=== PATIENT | male | born 1940 | race Two or more races ===

== ENCOUNTER 2018-05-07 12:20 | Inpatient (IN) | payer MEDICARE, MEDICAID ==
[~2018-05-07] VITALS: Ht 165.1 cm; Wt 72.1 kg
--- NOTE | 2018-05-07 12:27 | NUR ---
RUBI [employer] professional [facility] FROM [facility] FOR GT REPLACEMENT, "BALLOON DEFLATED AROUND 9AM" TO ER BED 7, HOOKED TO MONITOR, AWAITING MD ROMERO
--- NOTE | 2018-05-07 12:40 | NUR ---
DR GARZA AT BEDSIDE
--- NOTE | 2018-05-07 12:43 | NUR ---
DR GARZA AT BEDSIDE, ATTEMPTED TO REINSERT G-TUBE FR16, UNSUCCESSFUL DUE TO CLOSURE OF STOMA
--- NOTE | 2018-05-07 12:45 | NUR ---
CALLED DR. VALLEJO [phone] TO CALL BACK.
--- NOTE | 2018-05-07 12:56 | NUR ---
CALLED HOUSE SUP FOR MS BED
--- NOTE | 2018-05-07 12:57 | NUR ---
XRAY AT BS
[2018-05-07] MEDS ORDERED: ISOS30TA9 GT (13:08)
[2018-05-07] MEDS ORDERED: NITR0.4T48 SL (13:08)
[2018-05-07] MEDS ORDERED: DICL100G16 TP (13:08)
[2018-05-07] MEDS ORDERED: NUT.237L67 GT (13:08)
[2018-05-07] MEDS ORDERED: IPRA3AMP23 IH (13:08)
[2018-05-07] MEDS ORDERED: ACID1TAB12 GT (13:08)
[2018-05-07] MEDS ORDERED: FOLI1TAB16 GT (13:08)
[2018-05-07] MEDS ORDERED: LEVO125T8 GT (13:08)
[2018-05-07] MEDS ORDERED: ASPI-1169 GT (13:08)
[2018-05-07] MEDS ORDERED: NA P133E RC (13:08)
[2018-05-07] MEDS ORDERED: THIA100T74 GT (13:08)
[2018-05-07] MEDS ORDERED: ACET-868 GT (13:08)
[2018-05-07] MEDS ORDERED: FAMO20TA8 GT (13:08)
[2018-05-07] MEDS ORDERED: FURO-144 GT (13:08)
[2018-05-07] MEDS ORDERED: FERR300L GT (13:08)
[2018-05-07] MEDS ORDERED: DOCU50LI GT (13:08)
[2018-05-07] MEDS ORDERED: INSU100V3 SQ (13:08)
[2018-05-07] MEDS ORDERED: BLOO-668 IN (13:08)
[2018-05-07] MEDS ORDERED: VIT500LI GT (13:08)
[2018-05-07] MEDS ORDERED: MULT-447 GT (13:08)
[2018-05-07] MEDS ORDERED: BISA10SU11 RC (13:08)
[2018-05-07] MEDS ORDERED: MAGN400O6 GT (13:08)
[2018-05-07] MEDS ORDERED: AMLO5TAB9 GT (13:08)
[2018-05-07] MEDS ORDERED: INSU100V7 SQ (13:08)
[2018-05-07 13:14] LABS: CALCIUM, SERUM 8.8 mg/dL (8.5-10.1); CARBON DIOXIDE 24 mmol/L (21-32); CHLORIDE 99 mmol/L (98-107); CREATININE 3.4 mg/dL (0.6-1.3); GLUCOSE 118 mg/dL (74-106); POTASSIUM 4.2 mmol/L (3.5-5.1); SODIUM SERUM 136 mmol/L (136-145); UREA NITROGEN, BLOOD 66 mg/dL (7-18)
--- NOTE | 2018-05-07 13:15 | NUR ---
CALLED DR. VALLEJO [phone] TO CALL MD BACK SECOND TIME
[2018-05-07 13:32] LABS: BASOPHILS % (AUTO) 0.5 % (0.0-2.0); EOSINOPHILS % (AUTO) 5.9 % (0.0-6.0); HEMATOCRIT 23 % (39-51); HEMOGLOBIN 8.4 g/dL (13.5-17.5); LYMPHOCYTES # (AUTO) 1.8 /CMM (0.8-4.8); LYMPHOCYTES % (AUTO) 23.1 % (20.0-44.0); MEAN CORPUSCULAR VOLUME 108 fL (80-96); MONOCYTES # (AUTO) 0.7 /CMM (0.1-1.30); MONOCYTES % (AUTO) 9.2 % (2.0-12.0); NEUTROPHILS # (AUTO) 4.9 /CMM (1.8-8.9); NEUTROPHILS % (AUTO) 61.3 % (43.0-81.0); PLATELET COUNT (AUTO) 268 /CMM (150-450); RED BLOOD CELL COUNT(AUTO) 2.12 MIL/uL (4.5-6.0)
[2018-05-07 13:34] LABS: MEAN CORPUSCULAR HGB CONC 37 g/dl (31.0-36.0)
[2018-05-07 13:54] LABS: EOSINOPHILS % (MANUAL) 5 % (0-4); LYMPHOCYTES % (MANUAL) 16 % (16-48); MONOCYTES % (MANUAL) 7 % (0-11.0); NEUTROPHILS % (MANUAL) 72 (42-76)
--- NOTE | 2018-05-07 14:40 | NUR ---
GOT MS BED 311-2
--- NOTE | 2018-05-07 15:29 | NUR ---
REPORT GIVEN TO DAVIDE MENON FOR MICHELLE
--- NOTE | 2018-05-07 15:55 | NUR ---
MS EXERCISE TEACHER NOTE RECEIVED PT FROM ER VIA WHEELCHAIR WITH DX OF G-TUBE REPLACEMENT. PT IS NON-VERBAL WITH TRACH, RESPONDS TO YES AND NO QUESTIONS. PT DENIES PAIN AT THIS TIME. BREATHING IS EVEN AND UNLABORED ON ROOM AIR. NO ACUTE DISTRESS NOTED AT THIS TIME. LEFT AC #20G IV IS PATENT, CLEAN, DRY AND INTACT. VS OBTAINED. WOUND DOCUMENTATION COMPLETED PER PROTOCOL. ALL BELONGINGS ACCOUNTED FOR AND SIGNED, PLACED IN CHART. UNIT ORIENTATION PROVIDED, PT EDUCATED ON USE OF CALL SYSTEM WELL TO ONLY GET OUT OF BED WITH STAFF ASSISTANCE. PT NODDED HEAD UP AND DOWN. BED IS LOCKED AND IN LOWEST POSITION, SIDE RAILS UP X2, BED ALARM ON, CALL LIGHT AND POSSESSIONS WITHIN REACH. AWAITING ADMISSION ORDERS FROM DR. VALLEJO.
--- NOTE | 2018-05-07 16:14 | NUR ---
MS RN NOTE PAGED RIGHT OF WAY CLEARER NUMBER [phone] VALLEJO REGARDING ADMISSION ORDERS. AWAITING RESPONSE.
[2018-05-07] MEDS ORDERED: Z GUARD REMEDY 2 OZ OINT TP PRN (17:30)
[2018-05-07] MEDS ORDERED: ONDANSETRON HCL/PF 4 MG/2 ML VIAL IVP PRN (17:30)
[2018-05-07] MEDS ORDERED: HYDROCODONE/APAP 5/325MG 1 EACH TABLET PO PRN (17:30)
[2018-05-07] MEDS ORDERED: ZOLPIDEM TARTRATE 5 MG TABLET PO PRN (17:30)
[2018-05-07] MEDS: IV NS 0.9% 1,000 ML IV PRN (18:06)
--- NOTE | 2018-05-07 18:30 | NUR ---
MS RN CLOSING NOTE PT IN BED, RESTING WITH EYES CLOSED. EYES OPEN SPONTANEOUSLY TO VERBAL AND TACTILE STIMULI, PT IS NON-VERBAL W/ TRACH. PT ABLE TO ANSWER BASIC QUESTIONS AND ALSO PROVIDED WITH PEN AND PAPER ON CLIPBOARD AT THE BEDSIDE. PT DENIES PAIN AT THIS TIME. NO ACUTE DISTRESS NOTED. LEFT AC #22G INFUSING NS @ 50ML/HR WITHOUT REDNESS OR SWELLING. ALL NEEDS ATTENDED TO. ASPIRATION PRECAUTIONS AND NPO STATUS MAINTAINED. BED IS LOCKED AND IN LOWEST POSITION, SIDE RAILS UP X2, BED ALARM ON, CALL LIGHT AND POSSESSIONS WITHIN REACH.
--- NOTE | 2018-05-07 19:43 | NUR ---
RN MS OPENING NOTES RECEIVE PT IN BED, AWAKE ALERT ORIENTED X4, BREATHING EVEN AND UNLABORED ON ROOM AIR, OCCASIONAL COUGHING WITH SPUTUM. REMAINS ON ISO FOR TB RULE OUT. NO COMPLAINT OF PAIN OR DISCOMFORT AT THIS TIME, IV ACCESS ON THE RAC G18 WITH NS @70ML/HR. LAB CALLED AND ASKED TO GET A LARGER SPUTUM SAMPLE FOR THE 3 COLLECTION, PT INFORMER, SAMPLE CUT BED SIDE. BED IN LOWEST LOCKED POSITION, CALL LIGHT WITHIN REACH AT ALL TIMES. WILL CONTINUE TO MONITOR. Addendum: 05/07/18 at 1999 by ERIC FAN RN ERROR, WRONG PT
[2018-05-07 20:01] VITALS: BP 159/59
--- NOTE | 2018-05-07 20:07 | NUR ---
RN MS OPENING NOTES RECEIVED PT IN BED, AWAKE ALERT ORIENTEDX2-3 NON VERBAL BUT ABLE TO COMMUNICATE WITH GESTURES AND APPEARS TO UNDERSTAND BELARUSIAN. BREATHING EVEN AND UNLABORED ON ROOM AIR, TRACH IN PLACE. IV IN LAC #20 WITH NS @50ML.HR. NO COMPLAINT OF PAIN OR DISCOMFORT AT THE MOMENT, BED IN LOWEST LOCKED POSITION, CALL LIGHT WITHIN REACH AT ALL TIMES, WILL CONTINUE TO MONITOR.
[2018-05-08 06:47] LABS: CALCIUM, SERUM 8.5 mg/dL (8.5-10.1); CARBON DIOXIDE 26 mmol/L (21-32); CHLORIDE 103 mmol/L (98-107); CREATININE 3.2 mg/dL (0.6-1.3); GLUCOSE 86 mg/dL (74-106); MAGNESIUM 2.2 mg/dL (1.8-2.4); PHOSPHORUS 4.4 mg/dL (2.5-4.9); POTASSIUM 4.5 mmol/L (3.5-5.1); SODIUM SERUM 138 mmol/L (136-145); UREA NITROGEN, BLOOD 61 mg/dL (7-18)
--- NOTE | 2018-05-08 06:50 | NUR ---
RN MS CLOSING NOTES PT REMAINS IN BED, AWAKE ALERT ORIENTEDX3-4, NO N VERBAL BUT NODS HEAD IN UNDERSTANDING. BREATHING EVEN AND UNLABORED ON ROOM AIR, TRACH CAPPED. NO COMPLAINT OF PAIN OR DISCOMFORT AT THIS TIME. IV ACCESS ON THE L AC 2OG WITH NS @50ML. BED IN LOWEST LOCKED POSITION, WILL ENDORSE TO DAY NURSE FOR MICHELLE
[2018-05-08 06:52] LABS: CHOLESTEROL 101 mg/dL (<200); HDL CHOLESTEROL 23 mg/dL (40-60); LDL 74 mg/dL (0-99); TRIGLYCERIDES 78 mg/dL (30-150)
[2018-05-08 07:18] LABS: BASOPHILS % (AUTO) 0.3 % (0.0-2.0); EOSINOPHILS % (AUTO) 8.7 % (0.0-6.0); HEMATOCRIT 22 % (39-51); HEMOGLOBIN 7.8 g/dL (13.5-17.5); LYMPHOCYTES # (AUTO) 1.2 /CMM (0.8-4.8); LYMPHOCYTES % (AUTO) 21.4 % (20.0-44.0); MEAN CORPUSCULAR HGB CONC 36 g/dl (31.0-36.0); MEAN CORPUSCULAR VOLUME 104 fL (80-96); MONOCYTES # (AUTO) 0.6 /CMM (0.1-1.30); MONOCYTES % (AUTO) 10.5 % (2.0-12.0); NEUTROPHILS # (AUTO) 3.4 /CMM (1.8-8.9); NEUTROPHILS % (AUTO) 59.1 % (43.0-81.0); PLATELET COUNT (AUTO) 237 /CMM (150-450); RED BLOOD CELL COUNT(AUTO) 2.07 MIL/uL (4.5-6.0); WHITE BLOOD COUNT (AUTO) 5.8 K/uL (4.3-11.0)
--- NOTE | 2018-05-08 07:30 | NUR ---
MS RN OPENING NOTE RECEIVED PT IN BED, RESTING WITH EYES CLOSED. EYES OPEN SPONTANEOUSLY TO VERBAL AND TACTILE STIMULI, PT IS NON-VERBAL W/ TRACH. PT ABLE TO ANSWER BASIC QUESTIONS WITH GESTURES AND HEAD NODDING AND ALSO PROVIDED WITH PEN AND PAPER ON CLIPBOARD AT THE BEDSIDE. PT DENIES PAIN AT THIS TIME. NO ACUTE DISTRESS NOTED. LEFT AC #22G INFUSING NS @ 50ML/HR WITHOUT REDNESS OR SWELLING. ALL NEEDS ATTENDED TO. ASPIRATION PRECAUTIONS AND NPO STATUS MAINTAINED. BED IS LOCKED AND IN LOWEST POSITION, SIDE RAILS UP X2, BED ALARM ON, CALL LIGHT AND POSSESSIONS WITHIN REACH.
[2018-05-08 08:00] VITALS: BP 134/60
--- NOTE | 2018-05-08 09:30 | NUR ---
MS RN NOTE PER DESHAWN FROM WOUND CARE, WILL COMPLETE WOUND CARE CONSULT.
--- NOTE | 2018-05-08 09:50 | NUR ---
MS RN NOTE CONTACTED KARINA JORDAN REGARDING GI CONSULT, AWAITING RESPONSE.
--- NOTE | 2018-05-08 11:00 | NUR ---
MS RN NOTE PER HOSPITALIST DR. LERMA, HE CALLED KARINA JORDAN NP REGARDING GI CONSULT YESTERDAY. PER. DR. LERMA, HE WILL CALL AGAIN TODAY.
[2018-05-08] MEDS: IV NS 0.9% 1,000 ML IV PRN (13:51)
--- NOTE | 2018-05-08 15:40 | NUR ---
MS RN NOTE CALLED CELESTINE DRAKE AT [phone] TO OBTAIN TELEPHONE CONSENT. NO ANSWER, LEFT VOICEMAIL WITH CALL BACK INFORMATION.
--- NOTE | 2018-05-08 15:50 | NUR ---
MS RN NOTE CALLED NALLELY COREY JR (SON) AT [phone] TO INQUIRE FOR CONTACT INFORMATION FOR PT CELESTINE. PER NALLELY DE JESUS (SON) HE WILL INFORM CELESTINE TO CALL. PROVIDED UNIT PHONE NUMBER.
[2018-05-08] MEDS: PANTOPRAZOLE 40 MG VIAL IV SCH (15:56)
[2018-05-08 16:00] VITALS: BP 157/75
--- NOTE | 2018-05-08 16:41 | NUR ---
MS RN NOTE ATTEMPTED TO CONTACT CELESTINE DRAKE, OF PATIENT AGAIN AT [phone]. WENT TO VOICEMAIL. LEFT MESSAGE WITH CALL BACK INFORMATION.
--- NOTE | 2018-05-08 17:00 | NUR ---
MS RN NOTE PER KARINA JORDAN, LISA PT WILL HAVE PROCEDURE TOMORROW. INFORMED KARINA THAT AT THIS POINT IN TIME, ATTEMPTS TO OBTAIN CONSENT FROM FAMILY HAVE BEEN UNSUCCESSFUL SO FAR. PER KARINA KEEP HER UPDATED REGARDING IF CONSENT IS OBTAINED OR NOT.
--- NOTE | 2018-05-08 18:04 | NUR ---
MS RN NOTE INFORMED CONSENT OBTAINED FROM CELESTINE ARRIOLA AT THE BEDSIDE. SON NALLELY DE JSEUS AT THE BEDSIDE WELL. WILL INFORM KARINA JORDAN NP.
--- NOTE | 2018-05-08 18:30 | NUR ---
MS RN NOTE PER KARINA JORDAN, LISA PT SCHEDULED FOR 0900 TOMORROW. INFORMED AND SON AT THE BEDSIDE.
--- NOTE | 2018-05-08 18:47 | NUR ---
MS RN CLOSING NOTE PT IN BED, RESTING WITH EYES CLOSED. EYES OPEN SPONTANEOUSLY TO VERBAL AND TACTILE STIMULI, PT IS NON-VERBAL W/ TRACH. PT ABLE TO ANSWER BASIC QUESTIONS WITH GESTURES AND HEAD NODDING. PT ALSO PROVIDED WITH PEN AND PAPER ON CLIPBOARD AT THE BEDSIDE AND COMMUNICATES VIA [place]ITHU[place]IAN WRITING. PT DENIES PAIN AT THIS TIME. NO ACUTE DISTRESS NOTED. LEFT AC #22G INFUSING NS @ 50ML/HR WITHOUT REDNESS OR SWELLING. ADLS PROVIDED AND PT ASSISTED TO TURN AND REPOSITION Q2H FOR THE DURATION OF THE SHIFT. ALL NEEDS ATTENDED TO. ASPIRATION PRECAUTIONS AND NPO STATUS MAINTAINED. PT SCHEDULED FOR EGD W/ PEG PLACEMENT TOMORROW AT 0900. CONSENTS SIGNED AND PLACED IN CHART. BED IS LOCKED AND IN LOWEST POSITION, SIDE RAILS UP X2, BED ALARM ON, CALL LIGHT AND POSSESSIONS WITHIN REACH. WILL ENDORSE TO AGRI BUSINESS AGENT NURSE FOR CONTINUITY OF CARE.
--- NOTE | 2018-05-08 19:26 | NUR ---
RN MS OPENING NOTES RECEIVED PT IN BED, AWAKE ALERT ORIENTEDX2-3 NON VERBAL BUT ABLE TO COMMUNICATE PEN AND PAPER, TURKISH SPEAKING ONLY. BREATHING EVEN AND UNLABORED ON ROOM AIR, TRACH IN PLACE. IV IN LAC #20 WITH NS @50ML.HR. NO COMPLAINT OF PAIN OR DISCOMFORT AT THE MOMENT, NPO FOR PROCEDURE IN THE AM, BED IN LOWEST LOCKED POSITION, CALL LIGHT WITHIN REACH AT ALL TIMES, WILL CONTINUE TO MONITOR.
[2018-05-08 20:47] VITALS: BP 142/81
[2018-05-09] VITALS (9 sets, daily range): BP systolic 147–165; BP diastolic 68–77
--- NOTE | 2018-05-09 06:26 | NUR ---
RN MS CLOSING NOTES PT REMAINS IN BED, SLEEPING, EASILY AROUSED TO TOUCH, NON VERBAL BUT NODS HEAD IN UNDERSTANDS WOLOF. BREATHING EVEN AND UNLABORED ON ROOM AIR, TRACH CAPPED. NO COMPLAINT OF PAIN OR DISCOMFORT AT THIS TIME. IV ACCESS ON THE L AC 2OG WITH NS @50ML. REMAINS NPO FOR GTUBE PLACEMENT AT 9AM. BED IN LOWEST LOCKED POSITION, WILL ENDORSE TO DAY NURSE FOR MICHELLE
--- NOTE | 2018-05-09 06:57 | NUR ---
WOUND CARE CONSULT WOUND CARE RECEIVED CONSULT FOR MULTIPLE DISCOLORATIONS AND BRUISING. WOUND CARE WILL DEFER CONSULT AND ALL TREATMENT PLANS TO PLASTIC SURGICAL TEAM WHO ARE CURRENTLY FOLLOWING THIS PATIENT. PATIENT WITH ALICIA AT 16, ALL PRESSURE ULCER PREVENTION MEASURES ARE NOTED TO BE IN PLACE. WILL SEE PRN.
[2018-05-09] MEDS ORDERED: ANESTHESIA TRAY IN PYXIS 1 EA TRAY MC ONE (07:19)
--- NOTE | 2018-05-09 07:30 | NUR ---
MS RN OPENING NOTE RECEIVED PT IN BED, RESTING WITH EYES CLOSED. EYES OPEN SPONTANEOUSLY TO VERBAL AND TACTILE STIMULI, PT IS NON-VERBAL W/ TRACH. PT ABLE TO ANSWER BASIC QUESTIONS WITH GESTURES AND HEAD NODDING AND ALSO PROVIDED WITH PEN AND PAPER ON CLIPBOARD AT THE BEDSIDE. PT DENIES PAIN AT THIS TIME. NO ACUTE DISTRESS NOTED. LEFT AC #22G INFUSING NS @ 50ML/HR WITHOUT REDNESS OR SWELLING. ALL NEEDS ATTENDED TO. ASPIRATION PRECAUTIONS AND NPO STATUS MAINTAINED. PT IS SCHEDULED FOR PROCEDURE TODAY AT 0900. CONSENTS SIGNED AND OR CHECK LIST COMPLETED AND PLACED IN CHART. BED IS LOCKED AND IN LOWEST POSITION, SIDE RAILS UP X2, BED ALARM ON, CALL LIGHT AND POSSESSIONS WITHIN REACH.
--- NOTE | 2018-05-09 08:15 | NUR ---
MS RN NOTE PER RT SERINA, THE HOSPITAL DOES NOT STOCK SPECIFIC TRACH DRESSING AND CAP THAT THE PT HAS. WILL INQUIRE WITH FAMILY.
--- NOTE | 2018-05-09 08:20 | NUR ---
MS RN NOTE SPOKE WITH PT SON NALLELY , PER NALLELY DE JESUS HE WILL INFORM HIS MOTHER CELESTINE (THE PT ) TO BRING ADDITIONAL TRACH DRESSING AND SUPPLIES TO THE BEDSIDE.
--- NOTE | 2018-05-09 08:45 | NUR ---
RN PT OFF UNIT PT OFF UNIT FOR PROCEDURE. CONSENTS SIGNED AND OR CHECKLIST COMPLETE.
--- NOTE | 2018-05-09 10:36 | NUR ---
MS RN PT BACK ON UNIT PT BACK ON UNIT FROM EGD WITH PEG PLACEMENT. PT IS ALERT AND ORIENTED, BREATHING IS EVEN AND UNLABORED ON 2L NC. VS OBTAINED PER PROTOCOL. PT JOSE F PAIN AT THIS TIME. G-TUBE IS CLAMPED AND SITE IS WITHOUT BLEEDING OR DRAINAGE AT THIS TIME. BED IS LOCKED AND IN LOWEST POSITION, SIDE RAILS UP X3, BED ALARM ON, CALL LIGHT WITHIN REACH. POST OP ORDERS RECEIVED AND INITIATED.
--- NOTE | 2018-05-09 10:55 | NUR ---
MS RN NOTE INFORMED DR. LERMA THAT PT COMPLETED PROCEDURE AND POST OP ORDERS TO START FEEDING AT [address] FLOW[address]. [address]. LERMA HE WILL REVIEW MEDICATIONS TO BE RE STARTED.
[2018-05-09] MEDS ORDERED: NEPRO 1,000 ML BOTTLE GT PRN ×2 (11:30→11:40)
[2018-05-09] MEDS ORDERED: LEVOTHYROXINE SODIUM 125 MCG TABLET PO SCH (12:00)
[2018-05-09] MEDS ORDERED: AMLODIPINE BESYLATE 5 MG TABLET GT SCH (12:00)
--- NOTE | 2018-05-09 14:11 | NUR ---
MS RN NOTE G-TUBE FEEDING STARTED ORDERED AT [address] FLOWERS. DUE MEDICATIONS ADMINISTERED. BOWL SOUND ACTIVE IN ALL 4 QUADRANTS, NEW G-TUBE SITE IS WITHOUT BLEEDING OR DRAINAGE. ASPIRATION PRECAUTIONS MAINTAINED. WILL CONTINUE TO MONITOR.
--- NOTE | 2018-05-09 16:31 | NUR ---
MS RN NOTE PER , PT IS OKAY FOR D/C TODAY AND APPLY MEPILEX TO OLD G-TUBE SITE.
[2018-05-09] MEDS: PANTOPRAZOLE 40 MG VIAL IV SCH (16:50)
--- NOTE | 2018-05-09 17:00 | NUR ---
MS RN NOTE G-TUBE NOTED WITH LESS THAN 5ML OF RESIDUALS AT THIS TIME. SITE IS WITHOUT DRAINAGE, BOWEL SOUNDS ACTIVE IN ALL 4 QUADRANTS. PT DENIES PAIN AND NAUSEA AT THIS TIME. FEEDING INCREASED TO 40ML/HR. ASPIRATION PRECAUTIONS MAINTAINED. WILL CONTINUE TO MONITOR.
--- NOTE | 2018-05-09 18:47 | NUR ---
MS RN CLOSING NOTE IS NON-VERBAL W/ TRACH. PT ABLE TO ANSWER BASIC QUESTIONS WITH GESTURES AND HEAD NODDING. PT ALSO PROVIDED WITH PEN AND PAPER ON CLIPBOARD AT THE BEDSIDE AND COMMUNICATES VIA [place] WRITING. PT DENIES PAIN AT THIS TIME. NO ACUTE DISTRESS NOTED. RIGHT AC #18G INFUSING NS @ 50ML/HR WITHOUT REDNESS OR SWELLING. PT IS S/P EGD WITH PEG PLACEMENT TODAY WITH DR. FLOWERS. FEEDING STARTED AT 1400 TODAY ORDERED. PT TOLERATING CURRENT FEEDING OF NEPHRO @ 40ML/HR WITH LESS THAN 5ML OF RESIDUALS. ADLS PROVIDED AND PT ASSISTED TO TURN AND REPOSITION Q2H FOR THE DURATION OF THE SHIFT. ALL NEEDS ATTENDED TO. ASPIRATION PRECAUTIONS MAINTAINED. BED IS LOCKED AND IN LOWEST POSITION, SIDE RAILS UP X2, BED ALARM ON, CALL LIGHT AND POSSESSIONS WITHIN REACH. PT IS SCHEDULED FOR D/C TONIGHT BACK TO [facility] VIA AMBULANCE AT 9:00 P.M . DISCHARGE PAPERWORK COMPLETED PER PROTOCOL AND COPY WITH CHART. WOUND DOCUMENTATION STILL NEEDS TO BE COMPLETED, WILL DEFER TO STAFF DEVELOPMENT MANAGER NURSE. WILL ENDORSE TO STAFF DEVELOPMENT MANAGER NURSE FOR CONTINUITY OF CARE.
--- NOTE | 2018-05-09 22:14 | NUR ---
RN MS DISCHARGE NOTES PT REPORT CALLED INTO [facility] AT [facility], AND GIVEN TO EMT FPR TRANSFER. TRAC SITE CLEAN AND INTACT, IV REMOVED, EXIT PICTURES TAKEN. PT IN STABLE CONDITION, TAKEN BACK TO FACILITY.
== END 2018-05-09 20:50 | DRG 393 ==
LOC: ER 12:23 → MED 15:00
PROVIDERS: ADMIT Internal Medicine; ATTEND Internal Medicine
PROC: 0DH63UZ Insertion of Feeding Device into Stomach, Percutaneous Approach (ICD-10-PCS; principal; 2018-05-09)
DX: K94.23 Gastrostomy malfunction (principal); N17.0 Acute kidney failure with tubular necrosis; N18.4 Chronic kidney disease, stage 4 (severe); Y83.3 Surgical operation with formation of external stoma as the cause of abnormal reaction of the patient, or of later complication, without mention of misadventure at the time of the procedure; Y92.129 Unspecified place in nursing home as the place of occurrence of the external cause; R13.10 Dysphagia, unspecified; D53.9 Nutritional anemia, unspecified; D63.8 Anemia in other chronic diseases classified elsewhere; I12.9 Hypertensive chronic kidney disease with stage 1 through stage 4 chronic kidney disease, or unspecified chronic kidney disease; Z93.0 Tracheostomy status; Z85.21 Personal history of malignant neoplasm of larynx; E03.9 Hypothyroidism, unspecified; E86.9 Volume depletion, unspecified; Z72.0 Tobacco use
CPT/HCPCS: 36415; 71045-TC; 80048-TC; 80061-TC; 83735-TC; 84100-TC; 85025-TC; 87081-TC; C9113; G0378; J2704; J7030